=== PATIENT | male | born 1965 | race Caucasian/White ===

== ENCOUNTER 2022-11-10 13:09 | Emergency (ER) | payer OTHER ==
[~2022-11-10] VITALS: Ht 175.3 cm; Wt 80.7 kg
[2022-11-10 13:30] VITALS: BP 143/57; PULSE 114; RESP 20; TEMP 98.1; O2SAT 93
[2022-11-10] MEDS ORDERED: methocarbamoL 500 MG TAB PO STA (20:46)
[2022-11-10] MEDS ORDERED: KETOROLAC 15 MG/ML VIAL IM ONE (20:50)
[2022-11-10 21:08] LABS: BASOPHILS # (AUTO) 0.1 K/uL (0.00-0.22); BASOPHILS % (AUTO) 1.4 % (0.0-2.0); EOSINOPHILS # (AUTO) 0.2 K/uL (0-0.4); EOSINOPHILS % (AUTO) 2.7 % (0.0-4.0); HEMATOCRIT 49.6 % (36-52); HEMOGLOBIN 16.7 g/dL (12.0-18.0); LYMPHOCYTES # (AUTO) 2.1 K/uL (2.0-11.5); MEAN CORPUSCULAR HEMOGLOBIN 30 pg (27-31); MEAN CORPUSCULAR HGB CONC 34 g/dL (33-37); MEAN CORPUSCULAR VOLUME 89.3 fL (80-94); MONOCYTES % (AUTO) 12.1 % (1.7-9.3); NEUTROPHILS # (AUTO) 4.6 K/uL (1.8-7.7); NEUTROPHILS % (AUTO) 57.8 % (42.2-75.2); PLATELET COUNT (AUTO) 267 K/uL (140-450); RED BLOOD CELL COUNT(AUTO) 5.56 MIL/uL (4.20-6.10); RED CELL DISTRIBUTION WIDTH 14.3 % (11.6-13.7); WHITE BLOOD COUNT (AUTO) 7.9 K/uL (4.8-10.8)
[2022-11-10 21:34] LABS: ALBUMIN 4.2 g/dL (3.4-5.0); ANION GAP 14.1 (8-16); CALCIUM 8.8 mg/dL (8.5-10.1); CARBON DIOXIDE 27.6 mmol/L (21-32); CREATININE 1.5 mg/dL (0.6-1.3); POTASSIUM 3.7 mmol/L (3.5-5.1); TOTAL BILIRUBIN 0.7 mg/dL (0.0-1.0); TOTAL PROTEIN, SERUM 8.1 g/dL (6.4-8.2)
[2022-11-10] MEDS ORDERED: HYDROcodone/APAP 5/325 MG 1 TAB TAB PO ONE (21:40)
[2022-11-10] MEDS ORDERED: METH-1681 PO (22:07)
[2022-11-10] MEDS ORDERED: LID5T TP (22:07)
[2022-11-10] MEDS ORDERED: IBUP-2213 PO (22:07)
== END 2022-11-10 22:31 | disposition home or self-care (01) ==
LOC: MED 13:09
DX: N28.9 Disorder of kidney and ureter, unspecified (principal); M79.18 Myalgia, other site; Z79.899 Other long term (current) drug therapy; Z79.1 Long term (current) use of non-steroidal anti-inflammatories (NSAID)
CPT/HCPCS: 36415; 71045; 80053; 82550; 84484; 85025; 93005; 99285

== ENCOUNTER 2022-11-10 16:47 | Emergency (ER) | payer OTHER ==
[~2022-11-10] VITALS: Ht 175.3 cm; Wt 79.4 kg
[2022-11-10 16:58] VITALS: BP 127/91; PULSE 86; RESP 20; TEMP 98; O2SAT 100
[2022-11-10] MEDS ORDERED: methocarbamoL 500 MG TAB ONE (21:27)
[2022-11-10] MEDS ORDERED: KETOROLAC 15 MG/ML VIAL ONE (21:27)
[2022-11-10] MEDS ORDERED: HYDROcodone/APAP 5/325 MG 1 TAB TAB ONE (21:38)
[2022-11-10] MEDS ORDERED: LID5T TP (22:07)
[2022-11-10] MEDS ORDERED: IBUP-2213 PO (22:07)
[2022-11-10] MEDS ORDERED: METH-1681 PO (22:07)
== END 2022-11-10 16:58 | disposition left against medical advice (07) ==
LOC: MED 16:47
DX: R53.1 Weakness (principal); Z53.21 Procedure and treatment not carried out due to patient leaving prior to being seen by health care provider
CPT/HCPCS: 99281; J1885

== ENCOUNTER 2024-01-22 19:55 | Emergency (ER) | payer MEDICAID, OTHER ==
[~2024-01-22] VITALS: Ht 175.3 cm; Wt 84.4 kg
[~2024-01-22 19:55] MED LIST: ALBU0.0912 INH; AZIT250T3 PO; GUAI118L81 PO; IBUP-1842 PO; IBUP-2213 PO; LID5T TP; METH-1681 PO; METH4TAB1 PO
[2024-01-22 20:03] VITALS: BP 119/80; PULSE 81; RESP 18; TEMP 98.2; O2SAT 99
[2024-01-22] MEDS ORDERED: BACI-418 TP (20:31)
[2024-01-22] MEDS ORDERED: IBUP-2218 PO (20:31)
[2024-01-22] MEDS: ONDANSETRON 4 MG ODT PO ONE (20:43)
[2024-01-22] MEDS: MORPHINE SULFATE 4 MG/ML SYR IM ONE (20:44)
[2024-01-22] MEDS: BACITRACIN OINT 500 UNITS/GM PKT TP ONE (20:47)
[2024-01-22 21:04] VITALS: BP 123/70; PULSE 68
[2024-01-22 21:07] VITALS: O2SAT 99
== END 2024-01-22 21:04 | disposition home or self-care (01) ==
LOC: MED 19:55
DX: M79.644 Pain in right finger(s) (principal); Z79.899 Other long term (current) drug therapy; Z98.890 Other specified postprocedural states
CPT/HCPCS: 10120; 96372; 99285; J2270; Q0162